=== PATIENT | female | born 1985 | race Caucasian/White ===

== ENCOUNTER 2017-05-31 23:08 | Emergency (ER) | payer OTHER ==
[~2017-05-31] VITALS: Ht 165.1 cm; Wt 83.3 kg
[~2017-05-31 23:08] MED LIST: BACT800T5 PO; CYTO25TA PO; HYDR-3533 PO; SYNT25TA PO
[2017-05-31 23:28] VITALS: BP 128/60; PULSE 90; RESP 14; TEMP 98.9; O2SAT 99
[2017-06-01] MEDS ORDERED: LEVO.1 PO (00:44)
[2017-06-01] MEDS ORDERED: LIOT25 PO (00:45)
[2017-06-01] MEDS ORDERED: ROBA500T PO (00:45)
[2017-06-01] MEDS ORDERED: NORC5TAB PO (00:46)
[2017-06-01] MEDS ORDERED: IBUP-1129 PO (00:48)
[2017-06-01] MEDS ORDERED: MUPI2%T TOPICAL (01:11)
[2017-06-01] MEDS ORDERED: BACT800T5 PO (01:11)
[2017-06-01] MEDS ORDERED: CLIN150C14 PO (01:11)
--- NOTE | 2017-06-01 01:14 | PD ---
HPI Chief Complaint: Skin Problem Time Seen by Provider: 01:08 Travel History International Travel<30 days: No Contact w/Intl Traveler<30days: No Traveled to known affect area: No History of Present Illness HPI 31-year-old female presents to the emergency department by private transportation for right buttock sore 4 days. Patient is applied warm compresses and taken ibuprofen. Area seems to be getting enlarged. Patient denies and takes no immunosuppressive therapy. Patient is on no blood thinning agents. Patient rates pain moderate to severe. PFSH Past Medical History Narrative Medical Hypothyroidism; nursing notes reviewed Cancer: No High Cholesterol: Yes Diabetes: No Diminished Hearing: No Glaucoma: No Hepatitis: No Hiatal Hernia: No Hypertension: No Musculoskeletal: Yes (SCIATICA, ) Respiratory: Yes (SLEEP APNEA C PAP) Migraines: Yes Sleep Apnea: Yes Thyroid Disease: Yes Tetanus Vaccination: < 5 Years Influenza Vaccination: Yes ?: Unknown LMP: TWO WEEKS AGO : 5 Para: 3 Miscarriage: 2 : 0 Dilation and Curettage (D&C): Yes Tubal Ligation: Yes Past Surgical History Section: Yes (X3) Gynecologic Surgery: Yes (CONE BIOPSY, D AND C) Oral Surgery: Yes (UVULAPLASTY) Pacemaker: No Tonsillectomy: Yes Other Surgery: Yes (LYMPH NODE BIOPSY NECK-BENIGN) Social History Alcohol Use: No Tobacco Use: Yes (1PPD) Substance Use: No Allergies-Medications (Allergen,Severity, Reaction): Coded Allergies: fluconazole (Unverified Allergy, Severe, ANGIOEDEMA, 06/01/17) penicillin G (Unverified Allergy, Severe, RASH, 06/01/17) Reported Meds & Prescriptions Reported Meds & Active Scripts Active Clindamycin (Clindamycin HCl) 150 Mg Cap 300 Mg PO Q6H 7 Days Bactroban Topical (Mupirocin) 22 Gm Cream 1 Applic TOPICAL BID Bactrim DS (Sulfamethoxazole-Trimethoprim) 800-160 Mg Tab 1 Tab PO BID Reported Motrin Ib (Ibuprofen) 200 Mg Tablet 600 Tab PO TID PRN [place] (Hydrocodone-Acetaminophen) 5 Mg-325 Mg Tab 1 Tab PO Q8HR PRN Robaxin (Methocarbamol) 500 Mg Tab 500 Mg PO HS Cytomel (Liothyronine Sodium) 25 Mcg Tab 12.5 Mcg PO DAILY Synthroid (Levothyroxine Sodium) 100 Mcg Tab 100 Mcg PO DAILY Review of Systems Except as stated in HPI: all other systems reviewed are Neg Physical Exam Narrative GENERAL: Well-developed well-nourished female no acute distress or respiratory distress SKIN: Warm and dry. Attention right buttock cheek area of erythema with central induration 5.5 x 5 in diameter with no purulent drainage. HEAD: Normocephalic. EYES: No scleral icterus. No injection or drainage. NECK: Supple, trachea midline. No JVD or lymphadenopathy. CARDIOVASCULAR: Regular rate and rhythm without murmurs, gallops, or rubs. RESPIRATORY: Breath sounds equal bilaterally. No accessory muscle use. GASTROINTESTINAL: Abdomen soft, non-tender, nondistended. MUSCULOSKELETAL: No cyanosis, or edema. BACK: Nontender without obvious deformity. No CVA tenderness. Data Data Last Documented VS Vital Signs Date Time Temp Pulse Resp B/P (MAP) Pulse Ox O2 Delivery O2 Flow Rate FiO2 06/01/17 02:42 72 18 94/50 (65) 99 05/31/17 23:28 98.9 Orders Orders Sulfamet-Trimeth Ds 800-160 Mg (Bactrim (06/01/17 01:15) Ed Discharge Order (06/01/17 01:39) MDM Medical Decision Making Medical Screen Exam Complete: Yes Emergency Medical Condition: Yes Medical Record Reviewed: Yes Interpretation(s) Vital Signs Date Time Temp Pulse Resp B/P (MAP) Pulse Ox O2 Delivery O2 Flow Rate FiO2 06/01/17 02:42 72 18 94/50 (65) 99 05/31/17 23:28 98.9 90 14 128/60 (82) 99 Differential Diagnosis Cellulitis, abscess, MRSA, febrile illness, retained foreign body, occult fracture Narrative Course IV access obtained specimens collected and sent for resulting imaging studies ordered Diagnosis Primary Impression: Cellulitis and abscess of buttock Referrals: Primary Care Physician 2 days Patient Instructions: General Instructions Departure Forms: Tests/Procedures, Work Release Special Instructions: no work x 2 days Additional Instructions: No work 2 days Monitor temperature every 4 hours with thermometry take acetaminophen/Tylenol every 4 hours for fever 100.4F or greater Take 800 mg of ibuprofen/Advil/Motrin every 8 hours as needed for pain associated with inflammation or fever 100.4F or greater Apply intermittently warm compresses to affected area Return to the emergency department for fever increased redness or swelling of the area Follow-up with primary care provider Increase fluid hydration Med/Other Pt SpecificInfo: Prescription(s) given Scripts Clindamycin (Clindamycin) 150 Mg Cap 300 MG PO Q6H for Infection for 7 Days, #56 CAP 0 Refills Prov: Geena Lopez MD 06/01/17 Mupirocin Topical (Bactroban Topical) 22 Gm Cream 1 APPLIC TOPICAL BID for Mgmt Bacterial Infection, #1 TUBE 0 Refills Prov: Geena Lopez MD 06/01/17 Sulfamethoxazole-Trimethoprim (Bactrim DS) 800-160 Mg Tab 1 TAB PO BID for Infection, #14 TAB 0 Refills Prov: Geena Lopez MD 06/01/17 Disposition: 01 DISCHARGE HOME Condition: Stable Geena Lopez MD Jun 01, 2017 01:14
[2017-06-01] MEDS ORDERED: SULFAMETHOXAZOLE-TRIMETHOPRIM DS 800-160 MG TAB PO ONE (01:15)
[2017-06-01 02:42] VITALS: BP 94/50
== END 2017-06-01 02:44 | disposition home or self-care (01) ==
LOC: PHED 23:08
DX: L03.317 Cellulitis of buttock (principal); L02.31 Cutaneous abscess of buttock; E03.9 Hypothyroidism, unspecified; E78.00 Pure hypercholesterolemia, unspecified; F17.210 Nicotine dependence, cigarettes, uncomplicated; Z88.0 Allergy status to penicillin; Z88.8 Allergy status to other drugs, medicaments and biological substances
CPT/HCPCS: 99283